=== PATIENT | female | born 1945 | race Caucasian/White ===

== ENCOUNTER → 2018-05-17 09:48 | Outpatient (CLI) | payer OTHER, SELFPAY ==
--- NOTE | 2018-05-17 | DI.RAD.S_ITS ---
This blank DEXA report has been sent in error by the PACS system. The correct and complete report will be forthcoming in 1-2 days. Thank you for your patience and understanding. Dictated by: Jacob Burns M.D. on 05/17/2018 at 10:45 Approved by: Jacob Burns M.D. on 05/17/2018 at 10:45
== END ==
PROVIDERS: Family Provider Family Medicine; PCP Family Medicine; Visit Provider Nurse Practitioner Family
DX: M85.851 Other specified disorders of bone density and structure, right thigh (principal); Z78.0 Asymptomatic menopausal state; E07.9 Disorder of thyroid, unspecified; M06.9 Rheumatoid arthritis, unspecified; Z82.62 Family history of osteoporosis; Z90.722 Acquired absence of ovaries, bilateral
CPT/HCPCS: 77080

== ENCOUNTER → 2019-10-13 09:30 | Outpatient (CLI) | payer OTHER, SELFPAY ==
--- NOTE | 2019-10-13 | DI.MG.S_ITS ---
BILATERAL DIGITAL SCREENING MAMMOGRAM 3D/2D WITH CAD: 10/13/2019 CLINICAL: Routine screening. Comparison is made to exams dated: 05/01/2017 mammogram, 12/26/2014 mammogram, 12/31/2012 mammogram, and 02/28/2010 mammogram - [facility]. There are scattered fibroglandular elements in both breasts. Current study was also evaluated with a Computer Aided Detection (CAD) system. There is an oval focal asymmetry in the right breast superior lateral quadrant middle depth. There is an oval asymmetry in the medial left breast sub-areolar depth near central to the nipple seen on the craniocaudal view only. No other significant masses or calcifications are seen in either breast. IMPRESSION: INCOMPLETE: NEEDS ADDITIONAL IMAGING EVALUATION 1) The oval focal asymmetry in the right breast superior lateral quadrant middle depth is indeterminate. Additional views with possible ultrasound are recommended. 2) The oval asymmetry in the medial left breast sub-areolar depth near central to the nipple seen on the craniocaudal view only is indeterminate. Additional views with possible ultrasound are recommended. This exam was interpreted at Station ID: [id number]. NOTE: For mammograms, a report in lay terms will be sent to the patient. Approximately 15% of breast malignancies will not be visualized mammographically. In the management of a palpable breast mass, a negative mammogram must not discourage biopsy of a clinically suspicious lesion. Electronically Signed By: Melquiades Varma M.D. ecl/:10/13/2019 11:15:57 letter sent: Additional Imaging Needed ACR BI-RADS Category 0: Incomplete 3340F
== END ==
PROVIDERS: PCP Student in an Organized Health Care Education/Training Program; Visit Provider Student in an Organized Health Care Education/Training Program
DX: Z12.31 Encounter for screening mammogram for malignant neoplasm of breast (principal)
CPT/HCPCS: 77063; 77067

== ENCOUNTER → 2019-10-19 13:10 | Outpatient (CLI) | payer OTHER, SELFPAY ==
--- NOTE | 2019-10-19 | DI.MG.S_ITS ---
BILATERAL DIGITAL DIAGNOSTIC MAMMOGRAM 3D/2D: 10/19/2019 CLINICAL: Additional evaluation requested from prior study bilaterally. Comparison is made to exams dated: 10/13/2019 mammogram, 05/01/2017 mammogram, 12/26/2014 mammogram, and 12/31/2012 mammogram - [facility]. There are scattered fibroglandular elements in both breasts. After further review of comparison studies, it was determined that the 3 focal asymmetries in the right breast have been stable for multiple prior years. There is also a stable benign oval focal asymmetry in the left breast central to the nipple anterior depth. No other significant masses or calcifications are seen in either breast. IMPRESSION: There is no mammographic evidence of malignancy. All previously identified abnormalities have been present on remote prior studies. Return to annual mammogram screening schedule is recommended. Findings and recommendations were conveyed to the patient at time of exam. This exam was interpreted at Station ID: [id number]. NOTE: For mammograms, a report in lay terms will be sent to the patient. Approximately 15% of breast malignancies will not be visualized mammographically. In the management of a palpable breast mass, a negative mammogram must not discourage biopsy of a clinically suspicious lesion. Electronically Signed By: Renate garcia/:10/19/2019 14:19:57 letter sent: Normal Exam ACR BI-RADS Category 2: Benign Finding(s) 3342F
== END ==
PROVIDERS: PCP Student in an Organized Health Care Education/Training Program; Visit Provider Student in an Organized Health Care Education/Training Program
DX: R92.8 Other abnormal and inconclusive findings on diagnostic imaging of breast (principal)
CPT/HCPCS: 77066; G0279

== ENCOUNTER → 2019-11-03 12:40 | Outpatient (CLI) | payer OTHER, SELFPAY ==
--- NOTE | 2019-11-03 | DI.RAD.S_ITS ---
PROCEDURE: FL BARIUM SWALLOW INDICATIONS: DYSPHAGIA COMPARISON: None. FINDINGS: Function: There is decreased esophageal peristalsis. There is delayed esophageal clearance. No elicited gastroesophageal reflux. Morphology: Air-contrast images demonstrate normal mucosal morphology. Single contrast views show no esophageal strictures, extrinsic mass effects, or diverticula. Limited images of the stomach demonstrate normal appearance. IMPRESSION: Esophageal dysmotility Dictated by: Patricio Naik M.D. on 11/03/2019 at 13:58 Approved by: Patricio Naik M.D. on 11/03/2019 at 13:59
== END ==
PROVIDERS: PCP Student in an Organized Health Care Education/Training Program; Referring Provider Student in an Organized Health Care Education/Training Program; Visit Provider Student in an Organized Health Care Education/Training Program
DX: R13.10 Dysphagia, unspecified (principal); K22.4 Dyskinesia of esophagus
CPT/HCPCS: 74220

== ENCOUNTER → 2020-10-22 10:53 | Outpatient (CLI) | payer OTHER, SELFPAY | PROVIDERS: PCP Student in an Organized Health Care Education/Training Program; Referring Provider Student in an Organized Health Care Education/Training Program; Visit Provider Student in an Organized Health Care Education/Training Program | DX: Z12.31 Encounter for screening mammogram for malignant neoplasm of breast (principal); Z53.8 Procedure and treatment not carried out for other reasons ==

== ENCOUNTER → 2020-11-07 08:54 | Outpatient (CLI) | payer OTHER, SELFPAY ==
--- NOTE | 2020-11-07 | DI.MG.S_ITS ---
BILATERAL DIGITAL DIAGNOSTIC MAMMOGRAM 3D/2D: 11/07/2020 CLINICAL: Right breast lump. Comparison is made to exams dated: 10/19/2019 mammogram, 10/13/2019 mammogram, and 05/01/2017 mammogram - [facility]. There are scattered fibroglandular elements in both breasts. There is a stable benign 9 mm oval asymmetry with a circumscribed margin in the right breast at 12 o'clock middle depth. There is a 5 mm irregular asymmetry in the left breast at 7 o'clock in the retroareolar region. This is not significantly changed. No other significant masses or calcifications are seen in either breast. Specifically, no finding to correspond to the patient's palpable abnormality at the 12:00 position further from the nipple . IMPRESSION: INCOMPLETE: NEEDS ADDITIONAL IMAGING EVALUATION No mammographic abnormality to correspond directly to the palpable abnormality in the right breast 12:00 position. Ultrasound is recommended for full evaluation of this area. This was performed immediately following this exam. There is a stable 9 mm asymmetry in the right breast 12:00 position, closer to the nipple. This could possibly correlate to the palpable finding and an ultrasound of this area as well is recommended. The 5 mm irregular asymmetry in the left breast at 7 o'clock in the retroareolar region has not significantly changed, but remains indeterminate. An ultrasound is recommended. This was performed immediately following this exam. This exam was interpreted at Station ID: [id number]. NOTE: For mammograms, a report in lay terms will be sent to the patient. Approximately 15% of breast malignancies will not be visualized mammographically. In the management of a palpable breast mass, a negative mammogram must not discourage biopsy of a clinically suspicious lesion. Electronically Signed By: Renate garcia/:11/07/2020 09:37:23 ACR BI-RADS Category 0: Incomplete 3340F
--- NOTE | 2020-11-07 | DI.US.S_ITS ---
LIMITED ULTRASOUND OF LEFT BREAST AND AXILLA: 11/07/2020 CLINICAL: Patient returns for additional imaging over a suspected mass in the left breast. Comparison is made to exams dated: 11/07/2020 mammogram, 10/19/2019 mammogram, 10/13/2019 mammogram, and 05/01/2017 mammogram - [facility]. Ultrasound of the left breast 5-7 o'clock, and axilla regions was performed. There is a 0.5 cm x 0.3 cm x 0.4 cm irregular cyst with an irregular internal wall in the left breast at 6 o'clock in the retroareolar region 2 cm from the nipple. This correlates with mammography findings. There are two tiny adjacent cysts. Color flow imaging demonstrates that there is no vascularity present. IMPRESSION: PROBABLY BENIGN The 0.5 cm irregular cyst in the left breast most likely is a complicated cyst and is probably benign. A follow-up left ultrasound in 6 months is recommended to demonstrate stability. Findings and recommendations were conveyed to the patient at time of exam. This exam was interpreted at Station ID: [id number]. Electronically Signed By: Renate garcia/:11/07/2020 12:59:58 letter sent: Followup Recommended Ultrasound BI-RADS: 3 Probably benign
--- NOTE | 2020-11-07 | DI.US.S_ITS ---
LIMITED ULTRASOUND OF RIGHT BREAST AND AXILLA: 11/07/2020 CLINICAL: Palpable right breast lump. Comparison is made to exams dated: 11/07/2020 mammogram, 10/19/2019 mammogram, 10/13/2019 mammogram, 05/01/2017 mammogram, and 12/26/2014 mammogram - [facility]. Color flow and real-time ultrasound of the right breast 12 o'clock, and axilla regions were performed. Baldwin scale images of the real-time examination were reviewed. There is a superficial vascular structure immediately deep to the skin surface in the area of 12:00 palpable abnormality. No other sonographic findings to explain palpable abnormality. IMPRESSION: NEGATIVE Superficial vascular structure in the 12:00 position right breast may explain palpable abnormality. There is no sonographic evidence of malignancy. Return to right breast annual mammogram screening schedule is recommended. Findings and recommendations were conveyed to the patient at time of exam. This exam was interpreted at Station ID: [id number]. Electronically Signed By: Renate garcia/:11/07/2020 11:42:32 letter sent: Normal Exam Ultrasound BI-RADS: 1 Negative
== END ==
PROVIDERS: PCP Student in an Organized Health Care Education/Training Program; Referring Provider Student in an Organized Health Care Education/Training Program; Visit Provider Student in an Organized Health Care Education/Training Program
DX: R92.8 Other abnormal and inconclusive findings on diagnostic imaging of breast (principal); N63.10 Unspecified lump in the right breast, unspecified quadrant; N60.02 Solitary cyst of left breast
CPT/HCPCS: 76642; 77066; G0279

== ENCOUNTER → 2021-01-23 13:09 | Outpatient (CLI) | payer OTHER, SELFPAY | PROVIDERS: PCP Student in an Organized Health Care Education/Training Program; Referring Provider Student in an Organized Health Care Education/Training Program; Visit Provider Student in an Organized Health Care Education/Training Program | DX: M85.851 Other specified disorders of bone density and structure, right thigh (principal) | CPT/HCPCS: 77080 ==

== ENCOUNTER → 2021-11-01 11:36 | Outpatient (CLI) | payer OTHER, SELFPAY ==
--- NOTE | 2021-11-01 11:38 | DI.MG.S_ITS ---
BILATERAL DIGITAL DIAGNOSTIC MAMMOGRAM 3D/2D: 11/01/2021 CLINICAL: Short term follow up of the left breast, due for bilateral imaging. Comparison is made to exams dated: 11/07/2020 ultrasound, 11/07/2020 mammogram, 10/19/2019 mammogram, and 10/13/2019 mammogram - [facility]. There are scattered fibroglandular elements in both breasts. There is an oval equal density focal asymmetry with an indistinct and circumscribed margin in the left breast at 6 o'clock in the retroareolar region. This is not significantly changed. No other significant masses, calcifications, or other findings are seen in either breast. IMPRESSION: INCOMPLETE: NEEDS ADDITIONAL IMAGING EVALUATION The oval equal density focal asymmetry in the left breast is indeterminate. An ultrasound is recommended. Ultrasound will be performed immediately following the current exam. This exam was interpreted at Station ID: [id number]. NOTE: For mammograms, a report in lay terms will be sent to the patient. Approximately 15% of breast malignancies will not be visualized mammographically. In the management of a palpable breast mass, a negative mammogram must not discourage biopsy of a clinically suspicious lesion. Electronically Signed By: Oswald Cronin M.D. ddp/:11/01/2021 12:44:09 ACR BI-RADS Category 0: Incomplete 3340F
--- NOTE | 2021-11-01 11:39 | DI.US.S_ITS ---
LIMITED ULTRASOUND OF LEFT BREAST: 11/01/2021 CLINICAL: Patient returns today to evaluate a focal asymmetry in the left breast. Comparison is made to exams dated: 11/01/2021 mammogram, 11/07/2020 ultrasound, 11/07/2020 ultrasound, 11/07/2020 mammogram, 10/19/2019 mammogram, and 10/13/2019 mammogram - [facility]. Color flow and real-time ultrasound of the left breast 6 o'clock region were performed on the areas of interest. There is a 0.6 cm x 0.3 cm x 0.3 cm oval cyst in the left breast at 6 o'clock in the retroareolar region. This oval cyst is hypoechoic with a well-defined boundary, internal echoes, and posterior acoustic enhancement. This abnormality is not significantly changed and correlates with mammography findings. Color flow imaging demonstrates that there is no vascularity present. An incidental punctate shadowing calcification is noted at the 5 o'clock position. IMPRESSION: PROBABLY BENIGN The 0.6 cm x 0.3 cm x 0.3 cm oval cyst in the left breast is consistent with a complicated cyst and is probably benign. A follow-up mammogram and an ultrasound in 12 months is recommended to demonstrate 2 year stability. This exam was interpreted at Station ID: [id number]. Electronically Signed By: Oswald chase/:11/01/2021 13:22:40 letter sent: Followup Recommended Ultrasound BI-RADS: 3 Probably benign
== END ==
PROVIDERS: PCP Student in an Organized Health Care Education/Training Program; Referring Provider Student in an Organized Health Care Education/Training Program; Visit Provider Student in an Organized Health Care Education/Training Program
DX: R92.8 Other abnormal and inconclusive findings on diagnostic imaging of breast (principal); N60.02 Solitary cyst of left breast
CPT/HCPCS: 76642; 77066; G0279

== ENCOUNTER → 2022-01-29 13:12 | Outpatient (CLI) | payer OTHER, SELFPAY | PROVIDERS: Family Provider Student in an Organized Health Care Education/Training Program; PCP Student in an Organized Health Care Education/Training Program; Referring Provider Student in an Organized Health Care Education/Training Program; Visit Provider Family Medicine | DX: I87.2 Venous insufficiency (chronic) (peripheral) (principal); L97.812 Non-pressure chronic ulcer of other part of right lower leg with fat layer exposed; S81.811S Laceration without foreign body, right lower leg, sequela; W22.09XS Striking against other stationary object, sequela | CPT/HCPCS: 11042; 87070; 87075; 87205; 99204; 99213 ==

== ENCOUNTER → 2022-01-31 09:50 | Outpatient (CLI) | payer OTHER, SELFPAY | PROVIDERS: Family Provider Student in an Organized Health Care Education/Training Program; PCP Student in an Organized Health Care Education/Training Program; Referring Provider Student in an Organized Health Care Education/Training Program; Visit Provider Family Medicine | DX: S81.811A Laceration without foreign body, right lower leg, initial encounter (principal); R60.0 Localized edema | CPT/HCPCS: 99213 ==

== ENCOUNTER → 2022-02-05 15:05 | Outpatient (CLI) | payer OTHER, SELFPAY | PROVIDERS: Family Provider Student in an Organized Health Care Education/Training Program; PCP Student in an Organized Health Care Education/Training Program; Referring Provider Student in an Organized Health Care Education/Training Program; Visit Provider Family Medicine | DX: I87.2 Venous insufficiency (chronic) (peripheral) (principal); L97.812 Non-pressure chronic ulcer of other part of right lower leg with fat layer exposed; L92.8 Other granulomatous disorders of the skin and subcutaneous tissue; R60.0 Localized edema; S81.811S Laceration without foreign body, right lower leg, sequela; W22.09XS Striking against other stationary object, sequela | CPT/HCPCS: 97597 ==

== ENCOUNTER → 2022-02-12 13:14 | Outpatient (CLI) | payer OTHER, SELFPAY | PROVIDERS: Family Provider Student in an Organized Health Care Education/Training Program; PCP Student in an Organized Health Care Education/Training Program; Referring Provider Student in an Organized Health Care Education/Training Program; Visit Provider Family Medicine | DX: I87.2 Venous insufficiency (chronic) (peripheral) (principal); L97.812 Non-pressure chronic ulcer of other part of right lower leg with fat layer exposed; R60.0 Localized edema; W22.09XS Striking against other stationary object, sequela | CPT/HCPCS: 11042 ==

== ENCOUNTER 2022-02-15 14:13 | Emergency (ER) | payer OTHER, SELFPAY ==
[2022-02-15 15:10] VITALS: BP 174/80; PULSE 74; RESP 12; TEMP 36.3; O2SAT 98; BMI 27.9
--- NOTE | 2022-02-15 15:13 | DI.RAD.S_ITS ---
PROCEDURE: XR ANKLE LT MIN 3V INDICATIONS: fall left ankle pain and swelling TECHNIQUE: 3 views of the ankle were acquired. COMPARISON: None. FINDINGS: Bones: No fractures or dislocations. Ankle mortise is normally aligned. No suspicious bony lesions. Soft tissues: No tibiotalar joint effusion. Achilles tendon appears normal. Lateral soft tissue swelling IMPRESSION: Soft tissue swelling without fracture or foreign body Approved by: Sammy Riley M.D. on 02/15/2022 at 16:08
[2022-02-15 17:58] VITALS: PULSE 78; RESP 18; O2SAT 98
--- NOTE | 2022-02-15 20:17 | ED_ITS ---
HPI - Fall <Melanie Mora PA-C - Last Filed: 02/15/22 20:30> General Chief Complaint: Fall Stated Complaint: Fell, pain in left side of body. Time Seen by Provider: 02/15/22 17:00 Mode of arrival: Ambulatory History of Present Illness HPI Narrative: Patient is a 76-year-old female presenting today with left ankle pain and swelling since 11:00 a.m. She was taking out her trash can, got stuck on a curb, and the trash can fell on her knocking her over. She landed on her left side. She says she did not hit her head and did not have loss of consciousness. She reports left wrist, left hip, left knee, left ankle pain. She also has a minor abrasion on her left wrist. Pain has since subsided in her left wrist, hip, and knee. She presented to the ER because her left ankle is very painful, very swollen, and she cannot bear weight on it. She denies any headache, dizziness, shortness of breath, decreased ROM. She has not taken anything for the pain. She reports icing her ankle which improved her symptoms she has a nonhealing wound on her right santos for which he sees Wound Care regularly. She denies taking a blood thinner. Related Data Allergies Allergy/AdvReac Type Severity Reaction Status Date / Time No Known Drug Allergies Allergy Verified 02/15/22 15:13 Review of Systems <Melanie Mora PA-C - Last Filed: 02/15/22 20:30> Review of Systems ROS Unobtainable: All systems reviewed & are unremarkable except as noted in HPI and below Constitutional Constitutional: Denies chills, Denies fatigue, Denies fever(s), Denies frequent falls, Denies lethargy and Denies weakness Eyes Eyes: Denies change in vision, Denies eye discharge, Denies irritation and Denies loss of vision ENT Ears, Nose, Mouth, and Throat: Denies change in voice, Denies dizziness, Denies neck pain, Denies sore throat and Denies throat swelling Cardiovascular Cardiovascular: Denies chest pain, Denies irregular heart rhythm, Denies lightheadedness, Denies palpitations, Denies dyspnea, Denies dyspnea on exertion and Denies orthopnea Respiratory Respiratory: Denies cough, Denies dyspnea, Denies dyspnea on exertion and Denies wheezing Gastrointestinal Gastrointestinal: Denies abdominal pain, Denies change in bowel habits, Denies diarrhea, Denies nausea and Denies vomiting Genitourinary Genitourinary: Denies hematuria, Denies flank pain, Denies urinary incontinence and Denies urinary urgency Musculoskeletal Musculoskeletal: Reports as per HPI, Denies back pain, Reports arthralgias, Reports joint swelling, Reports limited range of motion, Denies muscle weakness, Reports myalgias, Denies neck pain, Reports numbness and Reports tingling Integumentary/Breasts Skin/Breast: Denies pruritus, Denies erythema, Denies rash and Reports wounds Neurologic Neurologic: Denies behavioral changes, Denies confusion, Denies dizziness, Denies frequent falls, Denies loss of vision, Reports numbness, Reports tingling and Denies weakness Psychiatric Psychiatric: Denies anxiety, Denies behavioral changes, Denies confusion, Denies depression, Denies homicidal ideation and Denies suicidal ideation Endocrine Endocrine: Denies fatigue, Denies flushing and Denies palpitations Hematologic/Lymphatic Hematologic/Lymphatic: Denies easy bruising Allergic/Immunologic Allergic/Immunologic: Denies urticaria, Denies throat swelling and Denies wheezing Patient History <Melanie Mora PA-C - Last Filed: 02/15/22 20:30> Social History Smoking Status: Never smoker Smoking Status: Never smoker alcohol intake frequency: 0-2 drinks per day Alcohol type: wine Substance Use Type: does not use Exam <Melanie Mora PA-C - Last Filed: 02/15/22 20:30> Narrative Exam Narrative: GENERAL: 76 year old patient appears stated age. Well-developed patient, in mild distress. HEAD: Atraumatic. Normocephalic. EYES: Pupils equal round and reactive. Extraocular motions intact. No scleral icterus. No injection or drainage. ENT: Nose without bleeding, purulent drainage. Throat without erythema, tonsillar hypertrophy or exudate. Airway patent. NECK: Trachea midline. Non tender CARDIOVASCULAR: Regular rate and rhythm without murmurs, gallops, or rubs. RESPIRATORY: Clear to auscultation. Breath sounds equal bilaterally. No wheezes, rales, or rhonchi. GASTROINTESTINAL: Abdomen soft, non-tender, nondistended. EXTREMITIES: Left wrist, left hip, left knee nontender to palpation with no signs of swelling. Left ankle tender to palpation with significant swelling along the lateral malleolus. Limited flexion and extension with pain elicited. Normal sensation intact. BACK: Nontender without deformity or crepitance. No flank tenderness. NEURO: AOx3. SKIN: No rash or erythema of visible areas. Small abrasion present on left wrist. Initial Vital Signs Initial Vital Signs: Vital Signs Temperature 97.4 F L 02/15/22 15:10 Pulse Rate 74 02/15/22 15:10 Respiratory Rate 12 02/15/22 15:10 Blood Pressure 174/80 H 02/15/22 15:10 Pulse Oximetry 98 02/15/22 15:10 <Santhosh Martinez DO - Last Filed: 02/17/22 00:16> Initial Vital Signs Initial Vital Signs: Vital Signs Temperature 97.4 F L 02/15/22 15:10 Pulse Rate 74 02/15/22 15:10 Respiratory Rate 12 02/15/22 15:10 Blood Pressure 174/80 H 02/15/22 15:10 Pulse Oximetry 98 02/15/22 15:10 Course <Melanie Mora PA-C - Last Filed: 02/15/22 20:30> Orders Ordered: ED Orders 02/15/22 15:13 XR ankle LT min 3V Stat Vital Signs Vital signs: Vital Signs - 8 hr 02/15/22 15:10 02/15/22 17:58 Temperature 97.4 F L Pulse Rate 74 78 Respiratory Rate 12 18 Blood Pressure 174/80 H Pulse Oximetry 98 98 <DO Porfirio Velázquez Last Filed: 02/17/22 00:16> Orders Ordered: ED Orders 02/15/22 15:13 XR ankle LT min 3V Stat Vital Signs Vital signs: Vital Signs - 8 hr 02/15/22 15:10 02/15/22 17:58 Temperature 97.4 F L Pulse Rate 74 78 Respiratory Rate 12 18 Blood Pressure 174/80 H Pulse Oximetry 98 98 MDM - Fall <MAURA Soto Last Filed: 02/15/22 20:30> Imaging Data Extremity x-ray #1: Radiologist's Impression: [address] [id number] XRay Report Signed Patient: Libia Chisholm MR#: [id number] : 1945 Acct:[id number] Age/Sex: 76 / F Date of Service: 02/15/22 Loc: ED Accession Number: [id number] ?? Procedure: XR ankle LT min 3V Ordering Provider: Jolene Wilkinson D.O. PROCEDURE:? XR ANKLE LT MIN 3V ? INDICATIONS:? fall left ankle pain and swelling ? TECHNIQUE:? 3 views of the ankle were acquired.? ? COMPARISON:? None. ? FINDINGS:? ? Bones:? No fractures or dislocations.? Ankle mortise is normally aligned.? No suspicious bony lesions.? ? Soft tissues:? No tibiotalar joint effusion.? Achilles tendon appears normal.? Lateral soft tissue swelling ? ? IMPRESSION:? Soft tissue swelling without fracture or foreign body ? Approved by: Sammy Riley M.D. on 02/15/2022 at 16:08? [facility] Narrative Medical decision making narrative: Patient is a 76-year-old female presenting with left ankle pain and swelling from a fall earlier today. X-ray showed soft tissue swelling with no signs of fracture. Based on my physical exam, patient is likely suffering from an ankle sprain. She declines any pain medication, boot, Surjit wrap, or crutches. I instructed patient to take ibuprofen with food for pain management and inflammation as needed. I instructed her to rest, elevate and ice her ankle periodically. I told her to refrain from bearing weight on her ankle until her symptoms improve. I also instructed her on keeping her left wrist abrasion clean and well-dressed. Instructed her to return to the ER with any increasing, pain, swelling, tenderness, redness, or heat. Findings and discharge diagnosis discussed with patient/family followed by verbalization of understanding Return precautions discussed with patient/family whom verbalize understanding. Discharge Plan Departure Patient Disposition: Home Clinical Impression: Fall (on)(from) sidewalk curb, initial encounter Ankle sprain Qualifiers: Encounter type: initial encounter Involved ligament of ankle: unspecified ligament Laterality: left Qualified Code(s): S93.402A - Sprain of unspecified ligament of left ankle, initial encounter Activity Restrictions/Additional Instructions: *You have been diagnosed with a left ankle sprain. You can take ibuprofen as needed for pain and inflammation control. You should also rest, elevate, ice, and refrain from bearing weight on your ankle until symptoms resolve. Please return back to the ER if you exhibit any severe pain, swelling, redness, or shortness of breath. *What to do: *Please continue to take your regular medications as directed. [ ] New medication prescriptions sent to your pharmacy: [ ] [ ] New medication written as a paper prescription [X] No new medications given *Please follow up with your primary care provider in 2-3 days, call for an appointment. Let them know you were seen in the Emergency Department and that we ask that you be seen in follow up. We will electronically transmit a record of today's note if your PCP is in our system *If you do not have a primary care provider please contact the [facility] Call Center at [phone] and they can help get you set up with a doctor in the community. *Return to Emergency Department if you should have any new, worsening or conc erning symptoms, such as [fever greater than 101 F, shaking chills, worsening pain, persistent vomiting or other bothersome symptoms] Referrals: Neyda Iverson MD [Primary Care Provider] - <Santhosh Martinez DO - Last Filed: 02/17/22 00:16> Cosign ED Attending Cosignature Attestation: I was immediately available in the department for consultation. This documentation has been reviewed and I agree with assessment and plan. Supervised by Santhosh Martinez DO
== END 2022-02-15 17:59 | disposition home or self-care (01) ==
PROVIDERS: Emergency Provider Physician Assistant; Family Provider Student in an Organized Health Care Education/Training Program; PCP Student in an Organized Health Care Education/Training Program
DX: S93.402A Sprain of unspecified ligament of left ankle, initial encounter (principal); W10.1XXA Fall (on)(from) sidewalk curb, initial encounter
CPT/HCPCS: 73610; 99283

== ENCOUNTER → 2022-02-26 13:26 | Outpatient (CLI) | payer OTHER, SELFPAY | PROVIDERS: Family Provider Student in an Organized Health Care Education/Training Program; PCP Student in an Organized Health Care Education/Training Program; Referring Provider Student in an Organized Health Care Education/Training Program; Visit Provider Family Medicine | DX: Z09 Encounter for follow-up examination after completed treatment for conditions other than malignant neoplasm (principal); I87.2 Venous insufficiency (chronic) (peripheral); R60.0 Localized edema; Z87.2 Personal history of diseases of the skin and subcutaneous tissue | CPT/HCPCS: 99212 ==

== ENCOUNTER → 2022-04-25 14:03 | Outpatient (CLI) | payer OTHER, SELFPAY ==
--- NOTE | 2022-04-25 | DI.RAD.S_ITS ---
PROCEDURE: XR KNEE LT 3V INDICATIONS: left knee pain TECHNIQUE: 3 views of the knee were acquired. COMPARISON: None. FINDINGS: Bones: No fractures or dislocations. No suspicious bony lesions. Mild lateral patellofemoral knee joint space narrowing and there is mild tricompartmental periarticular osteophyte formation. Mild lateral patellar tilt and migration. Soft tissues: Small joint effusion. No suspicious soft tissue calcifications. 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 Dictated by: Fitz Galvez Marquise Interpreted: Isis Bañuelos MD on 04/25/2022 at 15:08 Transcribed by: KASSI on 04/25/2022 at 15:09 Approved by: Isis Bañuelos M.D. on 04/25/2022 at 15:14
== END ==
PROVIDERS: Family Provider Student in an Organized Health Care Education/Training Program; PCP Internal Medicine; Referring Provider Internal Medicine; Visit Provider Internal Medicine
DX: M25.562 Pain in left knee (principal); M17.12 Unilateral primary osteoarthritis, left knee
CPT/HCPCS: 73562

== ENCOUNTER → 2022-08-04 07:17 | Outpatient (CLI) | payer OTHER, SELFPAY ==
[2022-08-04 10:10] LABS: Add Manual Diff / Slide Review NO; Basophils Absolute Auto 0 /uL (0-100); Basophils Percent Auto 0.7 % (0-2); Eosinophils Absolute Auto 300 /uL (0-450); Eosinophils Percent Auto 4.1 % (2-4); Hematocrit 39.7 % (36-46); Hemoglobin 13.1 g/dL (12.0-16.0); Lymphocytes Absolute Auto 2200 /uL (1100-4500); Lymphocytes Percent Auto 31.8 % (25-40); Mean Corpuscular HGB Conc 32.9 % (30-36); Mean Corpuscular Hemoglobin 29.8 PG (26-34); Mean Corpuscular Volume 90.5 fL (80-100); Monocytes Absolute Auto 600 /uL (0-900); Monocytes Percent Auto 8.3 % (3-14); Neutrophils Absolute Auto 3900 /uL (1500-7000); Neutrophils Percent Auto 55.1 % (50-75); Platelet Count 209 X10^3/uL (150-400); Red Blood Cell Count 4.39 X10^6/uL (4.0-5.2); Red Cell Distribution Width 14.8 % (11.6-14.8)
[2022-08-04 10:19] LABS: Hemoglobin A1C% w Est Avg Glu 6.3 % (4.0-6.0)
[2022-08-04 10:28] LABS: Alanine Aminotransferase 26 IU/L (<35); Albumin 4.1 g/dL (3.5-5.0); Albumin Globulin Ratio 1.5 (1.0-2.8); Alkaline Phosphatase 82 U/L (38-126); Aspartate Aminotransferase 24 IU/L (14-36); BUN Creatinine Ratio 35.1 (6-22); Bilirubin Total 0.3 mg/dL (0.2-1.3); Blood Urea Nitrogen 27 mg/dL (7-17); Calcium 9.2 mg/dL (8.4-10.2); Carbon Dioxide 25 mmol/L (22-32); Chloride 101 mmol/L (98-107); Cholesterol 156 mg/dL (140-199); Estimated Glomerular Filt Rate > 60 mL/min (>60); Globulin 2.8 g/dL (1.7-4.1); Glucose 101 mg/dL (80-110); HDL Cholesterol 58 mg/dL (40-60); HEMOLYSIS < 15 (0-50); LDL Cholesterol Calculated 79 mg/dL (<100); Potassium 4.3 mmol/L (3.4-5.1); Sodium 137 mmol/L (137-145); Total Protein 6.9 g/dL (6.3-8.2); Triglycerides 93 mg/dL (35-150)
[2022-08-04 10:43] LABS: Vitamin D 25 Hydroxy (D3) 43.8 ng/mL (30.0-100.0)
[2022-08-04 11:01] LABS: Thyroid Stimulating Hormone 4.78 uIU/mL (0.47-4.68)
== END ==
PROVIDERS: Family Provider Student in an Organized Health Care Education/Training Program; PCP Internal Medicine; Referring Provider Internal Medicine; Visit Provider Internal Medicine
DX: Z00.00 Encounter for general adult medical examination without abnormal findings (principal); E78.5 Hyperlipidemia, unspecified; E88.81 Metabolic syndrome and other insulin resistance; E03.9 Hypothyroidism, unspecified
CPT/HCPCS: 36415; 80053; 80061; 82306; 83036; 84443; 85025

== ENCOUNTER 2022-11-13 10:30 | Outpatient (RCR) | payer OTHER, SELFPAY ==
--- NOTE | 2022-11-10 12:40 | PT.OIE ---
Current Diagnoses Benign paroxysmal vertigo, right ear (11/10/22) Dizziness and giddiness (11/10/22) Visit Care Team Role Provider Type SIOBHAN Salinas Attending Provider Advanced Industrial Chemist Family Provider Primary Care Provider Referring Provider Specialty: [facility] Practice Address: [address] [place] [address], [id number] Email: [email or web address] Physical Therapy Initial Evaluation PT-OP-A Visit Information Start: 11/10/22 11:06 Freq: Status: Active Protocol: Document 11/10/22 10:25 DCW (Rec: 11/10/22 11:12 DCW [id number]) Out-Patient Physical Therapy Visit Information Visit Information Visit Type Initial Evaluation Visit Start Time 10:25 Visit Stop Time 11:05 Total Visit Minutes 40 Visit Number 1 Number of ATHLETIC EQUIPMENT MANAGER Visits 0 Evaluation Information Evaluation Date 11/10/22 PT-OP-B Current Condition Start: 11/10/22 11:06 Freq: Status: Active Protocol: Document 11/10/22 10:25 DCW (Rec: 11/10/22 11:12 DCW [id number]) Current Condition History of Current Condition Onset Date Two month history Current Complaints Position-dependent vertigo History of Current Condition Pt is a 77 year old female complaining of a two month history of motion-induced vertigo following multiple instances of head trauma. First incident was 7 months ago when she tripped while taking her yard waste bin back up to her house, and fell backwards, hitting her head on the ground. The second incident was two months ago, when she was bowling with her grandson, accidentally stepped on the bowling moises when her foot crossed the line, and fell backwards, and cracked my head right off the floor. It was after this fall when her positional symptoms began. Pt reports episodes last about 10 seconds. Symptoms are provoked by looking up or laying back in bed. Pt denies recent hearing changes, tinnitus, diplopia, dysarthria , or decreased mentation/ consciousness. Pt reports symptoms are not waxing/waning in nature. Pt denies hx of arrhythmia, seizure, migraines , or neck problems. Does have well-controlled HTN, high cholesterol, and a history of TIA, although no lingering effects. Reports that recently she saw Leonie Guy, her PCP, who laid her back on the table, and commented on her significant nystagmus and referred her to vestibular PT. Treatment Goals Patient/Caregiver Goals Eliminate positional vertigo PT-OP-C Subjective Start: 11/10/22 11:06 Freq: Status: Active Protocol: Document 11/10/22 10:25 DCW (Rec: 11/10/22 11:15 DCW [id number]) OP-PT Subjective Patient Comments Patient Comments My saw my eyes jumping and said it looked like something out of the Exorcist. Patient Reported Progress Same Patient Questionnaires Dizziness Handicap Inventory DHI Score 44% PT-OP-O Vestibular Start: 11/10/22 11:06 Freq: Status: Active Protocol: Document 11/10/22 10:25 DCW (Rec: 11/10/22 11:15 DCW [id number]) Vestibular Assessment Screening Tests Vestibular Artery Screen Negative Sharp-Cheo Test Negative Auditory Tests Carlin Test Within normal limits Rinne Test Negative Air Conduction Results Equal Visual Testing Smooth Pursuits Horizontal WNL Smooth Pursuits Vertical WNL Saccades Horizontal WNL Saccades Vertical WNL Heave Test Positive Bilateral Thrust Head Positive Bilateral Positional Testing [place]-Hallpike Positive Right,Negative Left, Upbeating,< 60 Seconds PT-OP-Q Treatments Start: 11/10/22 11:06 Freq: Status: Active Protocol: Document 11/10/22 10:25 DCW (Rec: 11/10/22 11:13 DCW [id number]) Canalithic Repositioning BPPV Treatment Magdiel Affected Canal(s) Right posterior canal Reps x1 Comments Modified Magdiel PT-OP-T Assessment and Plan Start: 11/10/22 11:06 Freq: Status: Active Protocol: Document 11/10/22 10:25 DCW (Rec: 11/10/22 12:39 DCW [id number]) Physical Therapy Assessment Rehab Potential Rehabilitation Potential Excellent Evaluation Complexity Number of Personal Factors/Comorbidities 1-2 Number of Body Systems Impaired 1-2 Clinical Presentation at Evaluation Unstable Impairments Impairments Balance,Functional Activities, Functional Mobility,Vestibular Goals Two Impairment Positive right [place]-Hallpike Short Term Goal (STG) Pt to test negatively bilaterally with all positional testing STG Duration 12/08/22 One Impairment Pt reports vertigo with positional changes Short Term Goal (STG) Pt to report being asymptomatic with all bed mobility for 3 straight days STG Duration 12/08/22 Assessment Summary Assessment During right Chichi-Hallpike test , pt complained of vertigo and demonstrated up-beating, torsional nystagmus lasting approximately 10 seconds, consistent with diagnosis of right-sided posterior canal BPPV, canalithiasis-type. Pt was treated with a right-sided modified Magdiel maneuver. Pt complained of symptoms in the first and third position, which is normally indicative of a successful treatment. Further positional testing was negative. Pt was educated on BPPV, expectations for treatment, possible recurrence (BPPV has a ~50% recurrence rate in the five years following treatment), and post -Magdiel restrictions. Pt to return in ~1 week for a follow -up appointment, and intermittently afterward as indicated for treatment of BPPV. Physical Therapy Plan Frequency and Duration Frequency of Treatment 1-2x/week Plan of Care Start Date 11/10/22 Plan of Care End Date 12/08/22 Therapeutic Interventions Therapeutic Interventions Balance Training,Canalithic Repositioning,Vestibular Rehabilitation Next Visit Focus/Plan Next Note Type Treatment Note Next Visit Plan Further positional testing, CRM as indicated.
--- NOTE | 2022-11-10 12:40 | PT.OPPOC ---
Physical, Occupational & Speech Therapy At [facility] Current Diagnoses Benign paroxysmal vertigo, right ear (11/10/22) Dizziness and giddiness (11/10/22) Visit Care Team Role Provider Type SIOBHAN Salinas Attending Provider Advanced Assistant Professor Of Spanish Family Provider Primary Care Provider Referring Provider Specialty: Family Practice Address: [address] [place] [address], [facility] Email: [email or web address] Plan Of Care PT-OP-T Assessment and Plan Start: 11/10/22 11:06 Freq: Status: Active Protocol: Document 11/10/22 10:25 DCW (Rec: 11/10/22 12:39 DCW [id number]) Physical Therapy Assessment Rehab Potential Rehabilitation Potential Excellent Evaluation Complexity Number of Personal Factors/Comorbidities 1-2 Number of Body Systems Impaired 1-2 Clinical Presentation at Evaluation Unstable Impairments Impairments Balance,Functional Activities, Functional Mobility,Vestibular Goals Two Impairment Positive right Chichi-Hallpike Short Term Goal (STG) Pt to test negatively bilaterally with all positional testing STG Duration 12/08/22 One Impairment Pt reports vertigo with positional changes Short Term Goal (STG) Pt to report being asymptomatic with all bed mobility for 3 straight days STG Duration 12/08/22 Assessment Summary Assessment During right [place]-Hallpike test , pt complained of vertigo and demonstrated up-beating, torsional nystagmus lasting approximately 10 seconds, consistent with diagnosis of right-sided posterior canal BPPV, canalithiasis-type. Pt was treated with a right-sided modified Magdiel maneuver. Pt complained of symptoms in the first and third position, which is normally indicative of a successful treatment. Further positional testing was negative. Pt was educated on BPPV, expectations for treatment, possible recurrence (BPPV has a ~50% recurrence rate in the five years following treatment), and post -Magdiel restrictions. Pt to return in ~1 week for a follow -up appointment, and intermittently afterward as indicated for treatment of BPPV. Physical Therapy Plan Frequency and Duration Frequency of Treatment 1-2x/week Plan of Care Start Date 11/10/22 Plan of Care End Date 12/08/22 Therapeutic Interventions Therapeutic Interventions Balance Training,Canalithic Repositioning,Vestibular Rehabilitation Next Visit Focus/Plan Next Note Type Treatment Note Next Visit Plan Further positional testing, CRM as indicated. Plan of Care Dates Plan of Care Start Date 11/10/22 Plan of Care End Date 12/08/22 Electronically Signed by: Tad Shipman, PT 11/10/22 4501 If you are in agreement with this Plan of Care, please return a signed and dated copy. I have reviewed this Plan of Care and certify that the skilled therapy services above are required to meet the patient?s needs. Physician Signature Date Printed Name and Credentials Clinical Instructor Signature Printed Name and Credentials
--- NOTE | 2022-11-13 10:44 | PT.OTN ---
Current Diagnoses Benign paroxysmal vertigo, right ear (11/13/22) Dizziness and giddiness (11/13/22) Physical Therapy Treatment Note PT-OP-A Visit Information Start: 11/10/22 11:06 Freq: Status: Active Protocol: Document 11/13/22 10:30 DCW (Rec: 11/13/22 10:44 DCW [id number]) Out-Patient Physical Therapy Visit Information Visit Information Visit Type Discharge Summary Visit Start Time 10:30 Visit Stop Time 10:39 Total Visit Minutes 9 Visit Number 2 Number of BED AND BREAKFAST COOK Visits 0 Evaluation Information Evaluation Date 11/10/22 PT-OP-B Current Condition Start: 11/10/22 11:06 Freq: Status: Active Protocol: Document 11/10/22 10:25 DCW (Rec: 11/10/22 11:12 DCW [id number]) Current Condition History of Current Condition Onset Date Two month history Current Complaints Position-dependent vertigo History of Current Condition Pt is a 77 year old female complaining of a two month history of motion-induced vertigo following multiple instances of head trauma. First incident was 7 months ago when she tripped while taking her yard waste bin back up to her house, and fell backwards, hitting her head on the ground. The second incident was two months ago, when she was bowling with her grandson, accidentally stepped on the bowling moises when her foot crossed the line, and fell backwards, and cracked my head right off the floor. It was after this fall when her positional symptoms began. Pt reports episodes last about 10 seconds. Symptoms are provoked by looking up or laying back in bed. Pt denies recent hearing changes, tinnitus, diplopia, dysarthria , or decreased mentation/ consciousness. Pt reports symptoms are not waxing/waning in nature. Pt denies hx of arrhythmia, seizure, migraines , or neck problems. Does have well-controlled HTN, high cholesterol, and a history of TIA, although no lingering effects. Reports that recently she saw Leonie Guy, her PCP, who laid her back on the table, and commented on her significant nystagmus and referred her to vestibular PT. Treatment Goals Patient/Caregiver Goals Eliminate positional vertigo PT-OP-C Subjective Start: 11/10/22 11:06 Freq: Status: Active Protocol: Document 11/13/22 10:30 DCW (Rec: 11/13/22 10:44 DCW [id number]) OP-PT Subjective Patient Comments Patient Comments Pt reports she has not had any symptoms since initial eval PT-OP-O Vestibular Start: 11/10/22 11:06 Freq: Status: Active Protocol: Document 11/13/22 10:30 DCW (Rec: 11/13/22 10:44 DCW [id number]) Vestibular Assessment Positional Testing Chichi-Hallpike Negative Left,Negative Right PT-OP-Q Treatments Start: 11/10/22 11:06 Freq: Status: Active Protocol: Document 11/10/22 10:25 DCW (Rec: 11/10/22 11:13 DCW [id number]) Canalithic Repositioning BPPV Treatment Magdiel Affected Canal(s) Right posterior canal Reps x1 Comments Modified Magdiel PT-OP-T Assessment and Plan Start: 11/10/22 11:06 Freq: Status: Active Protocol: Document 11/13/22 10:30 DCW (Rec: 11/13/22 10:44 DCW [id number]) Physical Therapy Assessment Impairments Impairments Balance,Functional Activities, Functional Mobility,Vestibular Goals Two Impairment Positive right [place]-Hallpike Short Term Goal (STG) Pt to test negatively bilaterally with all positional testing STG Duration Met One Impairment Pt reports vertigo with positional changes Short Term Goal (STG) Pt to report being asymptomatic with all bed mobility for 3 straight days STG Duration Met Progress Towards Goals Progress Towards Goals Goals Met Assessment Summary Assessment Pt examination is entirely negative today, pt reporting she is asymptomatic at this time. No further indication for continued vestibular therapy. Pt will be discharged from skilled therapy. Physical Therapy Plan Frequency and Duration Frequency of Treatment 1-2x/week Plan of Care Start Date 11/10/22 Plan of Care End Date 12/08/22 Therapeutic Interventions Therapeutic Interventions Balance Training,Canalithic Repositioning,Vestibular Rehabilitation Discharge Physical Therapy Discharge Reasons Goals Met Next Visit Focus/Plan Next Note Type Discharge Summary
== END 2022-11-14 11:34 | disposition home or self-care (01) ==
LOC: PHYS 10:30
PROVIDERS: Family Provider Internal Medicine; PCP Internal Medicine; Referring Provider Internal Medicine; Visit Provider Internal Medicine
DX: H81.11 Benign paroxysmal vertigo, right ear (principal)
CPT/HCPCS: 95992; 97140; 97161

== ENCOUNTER → 2022-12-05 07:57 | Outpatient (CLI) | payer OTHER, SELFPAY ==
--- NOTE | 2022-12-05 | DI.ECHO.S_ITS ---
[facility] +---------+ : : [address] : : : : [id number] : : : : Phone: [phone]---------+ Echocardiogram Report + + :Name: ANASTASIYA DUQUE Study Date: 12/05/2022 Height: 69 in : :[facility] ReadingLocation: Weight: 210 lb : : Gender: Female BSA: 2.1 m2 : :: 1945 Age: 77 yrs BP: 135/84 mmHg: :Reason For Study: MURMUR : :Ordering Physician: NETTE, : :AVERY Performed By: Tish Skelton : :Referring: AVERY PERDUE : + + Interpretation Summary Normal sinus rhythm. Normal LV size, wall thickness, wall motion and LV systolic function. EF is 60-65%. Normal chamber sizes. No significant valvular abnormalities. Compared to prior study obtained 03/11/2012 no significant changes have occurred. Procedure: A two-dimensional transthoracic echocardiogram with color flow and Doppler was performed. The study quality was technically adequate. Comparison is made with the echocardiogram of 03/11/2012. The patient was in sinus rhythm with heart rates between 69-76 bpm during the exam. Left Ventricle: The left ventricle is normal in size. Proximal septal thickening is noted. The ejection fraction is estimated to be 60-65%. Right Ventricle: The right ventricle is normal in size and function. Atria: The left atrial size is normal. Right atrial size is normal. There is no Doppler evidence for an interatrial shunt. Mitral Valve: There is mild mitral annular calcification. The mitral valve is normal in structure and function. There is mild mitral regurgitation. Aortic Valve: The aortic valve is trileaflet. The aortic valve opens well. There is no aortic valve stenosis. No aortic regurgitation is present. Tricuspid Valve: The tricuspid valve is normal in structure and function. There is mild tricuspid regurgitation. The right ventricular systolic pressure is estimated to be at least 23 mmHg based on an estimated right atrial pressure of 3 mm Hg. Pulmonic Valve: The pulmonic valve leaflets are thin and pliable; valve motion is normal. There is trace pulmonic regurgitation. Great Vessels: The aortic root is normal size. The dimensions of the ascending aorta are normal. The IVC is of normal diameter and collapses greater than 50% with a sniff. This suggests a low right atrial pressure of 3 mm Hg. Pericardium/ Pleura There is no pericardial effusion. There is no pleural effusion. MMode/2D Measurements & Calculations LVIDd: 4.0 cm LVOT diam: 2.0 cm LVIDs: 2.8 cm Ao root diam: 3.4 cm FS: 29.3 % asc Aorta Diam: 3.6 cm IVSd: 1.0 cm Ao Arch Diam (Prox Trans): 3.1 cm LVPWd: 0.92 cm LV willing[place]. diameter/BSA (cm/m^2): 1.9 LV sys. diameter/BSA (cm/m^2): 1.3 LA A2 area: 19.9 cm2 RA long axis: 5.1 cm LA A4 area: 18.8 cm2 RA area: 13.7 cm2 LA length (vol): 5.2 cm RA vol: 31.7 ml LA vol: 60.7 ml RA : 15.0 ml/m2 LA vol index: 28.8 ml/m2 IVC diam: 1.7 cm RVD1 (basal): 3.1 cm RVD2 (mid): 2.6 cm TAPSE: 1.7 cm Doppler Measurements & Calculations Ao V2 max: 188.3 cm/sec LVOT Max Kale: 158.8 cm/sec Ao V2 mean: 147.4 cm/sec LV V1 max P.1 mmHg Ao max P.2 mmHg LV V1 VTI: 38.7 cm Ao mean P.2 mmHg ANNIE(I,D): 2.7 cm2 Ao V2 VTI: 43.7 cm ANNIE(V,D): 2.5 cm2 sev ratio: 0.89 ANNIE indexed to BSA (cm^2/m^2): 1.3 MV E max kale: 114.0 cm/sec TR max kale: 223.4 cm/sec MV A max kale: 101.4 cm/sec TR max P.0 mmHg MV E/A: 1.1 PA V2 max: 93.0 cm/sec Med Peak E' Kale: 7.3 cm/sec PA V2 mean: 63.1 cm/sec E/E' med: 15.7 PA mean P.8 mmHg Lat Peak E' Kale: 9.4 cm/sec PA pr(Accel): 25.9 mmHg E/E' lat: 12.1 E/e' average: 13.9 MV dec time: 0.27 sec MVA(VTI): 3.6 cm2 MV V2 mean: 79.3 cm/sec SV(LVOT): 117.0 ml MV mean P.8 mmHg MV V2 VTI: 32.3 cm Electronically signed by: Zina Calderon M.D. on Reading Physician:12/06/2022 01:01 AM
== END ==
PROVIDERS: Family Provider Internal Medicine; PCP Internal Medicine; Referring Provider Internal Medicine; Visit Provider Internal Medicine
DX: R01.1 Cardiac murmur, unspecified (principal); I08.1 Rheumatic disorders of both mitral and tricuspid valves
CPT/HCPCS: 93306

== ENCOUNTER → 2022-12-30 08:44 | Outpatient (CLI) | payer OTHER, SELFPAY ==
--- NOTE | 2022-12-30 | DI.MG.S_ITS ---
BILATERAL DIGITAL DIAGNOSTIC MAMMOGRAM 3D/2D: 12/30/2022 CLINICAL: Short term follow up of the left breast, due for bilateral imaging. Comparison is made to exams dated: 11/01/2021 ultrasound, 11/01/2021 mammogram, 11/07/2020 ultrasound, 11/07/2020 mammogram, 10/19/2019 mammogram, and 10/13/2019 mammogram - [facility]. There are scattered areas of fibroglandular density in both breasts (category b / 25%-50% glandular tissue). There is a stable oval focal asymmetry in the left breast at 6 o'clock in the retroareolar region. No other significant masses, calcifications, or other findings are seen in either breast. IMPRESSION: INCOMPLETE: NEEDS ADDITIONAL IMAGING EVALUATION The stable oval focal asymmetry in the left breast is indeterminate. An ultrasound is recommended. Based on the Tyrer Cuzick model (a risk assessment model) the patient's lifetime risk is 6.1% and her 10 year risk is 6.1%. According to the ACR, ACS, and NCCN guidelines, an annual breast MRI exam along with mammogram is recommended if the patient's lifetime risk is 20% or greater. This exam was interpreted at Station ID: [id number]. NOTE: For mammograms, a report in lay terms will be sent to the patient. Approximately 15% of breast malignancies will not be visualized mammographically. In the management of a palpable breast mass, a negative mammogram must not discourage biopsy of a clinically suspicious lesion. Electronically Signed By: Alise John M.D. lk/:12/30/2022 09:09:18 ACR BI-RADS Category 0: Incomplete [id number]
--- NOTE | 2022-12-30 | DI.US.S_ITS ---
LIMITED ULTRASOUND OF LEFT BREAST AND AXILLA: 12/30/2022 CLINICAL: 12 month follow up in the left breast. Comparison is made to exams dated: 11/01/2021 ultrasound and 11/07/2020 ultrasound - [facility]. Color flow ultrasound of the left breast axilla was performed on the areas of interest. Baldwin scale images of the real-time examination were reviewed. There is a stable 0.6 cm x 0.3 cm x 0.3 cm complicated cyst in the left breast central to the nipple in the retroareolar region. This correlates with mammography findings. IMPRESSION: BENIGN There is no sonographic evidence of malignancy. The stable 0.6 cm x 0.3 cm x 0.3 cm complicated cyst in the left breast is benign. A 1 year screening mammogram is recommended. This exam was interpreted at Station ID: [id number]. Electronically Signed By: Alise suazo/:12/30/2022 13:40:25 letter sent: Normal Exam Ultrasound BI-RADS: 2 Benign
== END ==
PROVIDERS: Family Provider Internal Medicine; PCP Internal Medicine; Referring Provider Internal Medicine; Visit Provider Internal Medicine
DX: R92.8 Other abnormal and inconclusive findings on diagnostic imaging of breast (principal); N60.02 Solitary cyst of left breast
CPT/HCPCS: 76642; 77066; G0279

== ENCOUNTER → 2023-01-20 14:48 | Outpatient (CLI) | payer OTHER, SELFPAY ==
--- NOTE | 2023-01-20 15:09 | DIET.OUTPTC ---
Dietary Outpatient Consultation Note Consultation Date: 01/20/[address] visit for help with preDM. A1c 6.5 Metformin: 500mg bid Pt wants to wear CGM Dexcom, PCP is writing Rx. Height: 5'10 Weight: 237# down to 210# in 2mo using portion control and low carb diet Testing FBG daily: normally 110-120, with some outliers: 157, 107 Has been on very low carb diet x2mo Food Recall: B: piece Kuldeep keto bread with pb 10am: francois and eggs Sn: keto cereal with blueberries or Mayberry bar D: meat and veggies or low carb tortilla with beans Wed: 1 glass wine Nutrition Diagnosis: altered nutrition related laboratory values r/t endocrine dysfunction and erratic diet aeb pt with A1c 6.5, pt responding with very low carb diet, pt afraid to consume 120g CHO/d due to mother who had insulin dependent T2DM. Interventions: 1. Encouraged pt to increase high fiber carb intake in diet to support energy levels and health with a focus on legumes and winter squash. 2. Provided pt Cardiometabolic meal plan to optimize cardiometabolic health. Pt will use this as a guide. 3. Encouraged pt to purchase additional test strips to test in middle of night per her own curiosity as well as 2h PP as she is increasing high fiber carbohydrate intake with goal of <150. Pt to f/u prn. Electronically Signed by: Ksenia Lion 01/20/23 15:09 Clinical Dietitian [id number] [place] [address]
== END ==
PROVIDERS: Family Provider Internal Medicine; PCP Internal Medicine; Referring Provider Internal Medicine; Visit Provider Internal Medicine
DX: E66.9 Obesity, unspecified (principal); R73.03 Prediabetes; I10 Essential (primary) hypertension; M85.80 Other specified disorders of bone density and structure, unspecified site; Z71.3 Dietary counseling and surveillance
CPT/HCPCS: 97802

== ENCOUNTER → 2023-07-14 15:04 | Outpatient (CLI) | payer OTHER, SELFPAY ==
--- NOTE | 2023-07-14 | DI.RAD.S_ITS ---
PROCEDURE: XR HAND LT MIN 3V INDICATIONS: Leonie Guy TECHNIQUE: 3 views of the hand(s) acquired. COMPARISON: None. FINDINGS: Bones: No fractures or dislocations. Carpal bones are normally aligned. No suspicious bony lesions. 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 Scattered IP degenerative narrowing. No definitive erosions. Radiocarpal narrowing is present. Soft tissues: No suspicious soft tissue calcifications. IMPRESSION: Arthritic changes as above. Dictated by: Isis Bañuelos M.D. on 07/14/2023 at 21:16 Approved by: Isis Bañuelos M.D. on 07/14/2023 at 21:17
== END ==
PROVIDERS: Family Provider Internal Medicine; PCP Internal Medicine; Referring Provider Internal Medicine; Visit Provider Internal Medicine
DX: M06.9 Rheumatoid arthritis, unspecified (principal)
CPT/HCPCS: 73130

== ENCOUNTER → 2024-02-16 11:45 | Outpatient (CLI) | payer OTHER, SELFPAY ==
--- NOTE | 2024-02-16 11:47 | DI.RAD.S_ITS ---
PROCEDURE: XR DEXA AXIAL SKELETON INDICATIONS: Age-related osteoporosis COMPARISON: [facility], , XR DEXA AXIAL SKELETON, 01/23/2021, 13:34. [facility], CR, XR DEXA AXIAL SKELETON, 05/17/2018, 10:23. FINDINGS: Lumbar Spine: Bone mineral density 0.73 g/cm2, T score -2.6, previously -1.8. Left Hip: Bone mineral density 0.71 g/cm2, T score -1.9, previously -1.7. Left Femoral Neck: Bone mineral density 0.62 g/cm2, T score -2.1, previously -1.8. Right Hip: Bone mineral density is 0.72 g/cm2, T score -1.8, previously -1.7. Right Femoral Neck: Bone mineral 0.62 g/cm2, T score -2.1, previously -2.2. Fracture Risk Calculation (when applicable): 10-year fracture risk of a major osteoporotic fracture 18 percent and of a hip fracture 5 percent. (T score greater or equal to -1.0 to: NORMAL) (T score from -1.1 to -2.4: OSTEOPENIA) (T score less than or equal to -2.5: OSTEOPOROSIS) IMPRESSION: Osteoporosis (T-score below -2.5 in the lumbar spine). Follow-up guidelines as follows: Osteoporosis: Consider a repeat DEXA and Vertebral Fracture Assessment (VFA) exam in 2 years or sooner if medically necessary, to reassess this patient's status. Osteopenia: Consider a repeat DEXA in 2-3 years to reassess this patient's status, or if there is a new clinical indication. Normal: Consider a repeat DEXA in 5 years or sooner, or if there is a new clinical indication. Dictated by: Sang Aguilar M.D. on 02/16/2024 at 15:42 Approved by: Sang Aguilar M.D. on 02/16/2024 at 15:46
== END ==
PROVIDERS: Family Provider Internal Medicine; PCP Internal Medicine; Referring Provider Internal Medicine; Visit Provider Internal Medicine
DX: M81.0 Age-related osteoporosis without current pathological fracture (principal); Z78.0 Asymptomatic menopausal state
CPT/HCPCS: 77080

== ENCOUNTER → 2024-03-30 13:54 | Outpatient (ROUT) | payer OTHER, SELFPAY ==
[2024-03-30 14:35] LABS: Influenza A - CEPHEID Flu A NEGATIVE (NEGATIVE); Influenza B - CEPHEID Flu B NEGATIVE (NEGATIVE); Respiratory Syncytial Virus Negative (Negative)
[2024-03-30 14:39] LABS: COVID-19 CEPHEID 4-PLEX PCR Negative (Negative)
== END ==
PROVIDERS: Family Provider Internal Medicine; PCP Internal Medicine; Visit Provider Internal Medicine
DX: R05.1 Acute cough (principal)
CPT/HCPCS: 0241U

== ENCOUNTER → 2025-09-26 13:07 | Outpatient (ROUT) | payer OTHER, SELFPAY ==
[2025-09-26 13:58] LABS: COVID-19 CEPHEID 4-PLEX PCR Negative (Negative); Influenza A - CEPHEID Flu A NEGATIVE (NEGATIVE); Influenza B - CEPHEID Flu B NEGATIVE (NEGATIVE)
== END ==
PROVIDERS: Family Provider Internal Medicine; PCP Internal Medicine; Visit Provider Family Medicine
DX: R05.1 Acute cough (principal)
CPT/HCPCS: 87637